=== PATIENT | male | born 1955 | race Caucasian/White ===

== ENCOUNTER → 2024-04-11 10:18 | Outpatient (REF) | payer MEDICARE, OTHER, SELFPAY ==
[2024-04-11 19:51] LABS: Urine Albumin Negative (Neg - Trace); Urine Bilirubin Negative (Negative); Urine Character Clear (Clear); Urine Color Yellow; Urine Glucose Negative (Negative); Urine Ketone Negative (Negative); Urine Leukocyte Negative (Negative); Urine Nitrite Negative (Negative); Urine Occult Blood Negative (Negative); Urine Urobilinogen Negative (Neg - 1+)
== END ==
LOC: CLAB 10:18
PROVIDERS: ATTENDING PHYSICIAN Surgery
DX: N39.0 Urinary tract infection, site not specified (principal)
CPT/HCPCS: 81003; 87086

== ENCOUNTER 2024-04-18 11:01 | Emergency (ER) | payer MEDICARE, OTHER, MEDICAID, SELFPAY ==
[2024-04-18] VITALS (8 sets, daily range): BP systolic 93–139; BP diastolic 48–67; BMI 22.5
--- NOTE | 2024-04-18 12:42 | ED.GENMED ---
History of Present Illness
<Aundrea Oakes PA-C - Last Filed: 04/18/24 20:54>
General
Chief Complaint: Blood Pressure Problem
Source: family
Exam Limitations: developmental stage
Time Seen by Provider: 04/18/24 12:18
Nursing documentation reviewed up to this point in time: agreed with
History of Present Illness
History of Present Illness:
68 y/o M with h/o autism/dev delay
lives with brother and MERCEDES who are POA and are here and primary historians
MERCEDES is retired rn and knows him well
pt has been living with them for 3 yeras
he has been doing well
goes to day program 2 times a week. 2 times last week pt complained while he was there that he was dizy and then peed himself. he had no known reason to pee himself, he didn't pass out or seize but maybe couldn't get to the bathroom in time
he has not had any cp, headache
he has some tremors at baseline and an abnormal gait at baseline but no change to that
MERCEDES started taking his bp lying and standing and would be low 100s lying and drop to 70s standing
he has been eating/drinking as far as they know
but he has been urinatin g more
went to see urology 1 week ago and had PVR which was normal and ua that was neg; is scheduled for cystoscopy next week.
Past History
<Aundrea Oakes PA-C - Last Filed: 04/18/24 20:54>
Past History
ED Past Medical History: GERD and Other (autism, )
Social History
Tobacco: Non-smoker
Alcohol: None
Drug: None
Personal: Single
Living: with family
Employment: Not employed
Review of Systems
<Aundrea Oakes PA-C - Last Filed: 04/18/24 20:54>
Review of Systems
Allergies reviewed?: Yes
All Other Systems: Not applicable
Phy Exam
<Aundrea Oakes PA-C - Last Filed: 04/18/24 20:54>
Physical Exam
Physical Exam:
GENERAL: Alert , in no apparent distress, some mild tremor
EYE: pupils equal and reactive
NECK: Supple
ENT: o/p clr, mmm.
CARDIAC: Regular rate and rhythm .no murmur
LUNGS: Clear breath sounds bilaterally, no acute respiratory distress, no wheezes/rales/rhonchi
ABDOMEN: Soft, without focal tenderness, no r/g, no cvat, normal bowel sounds
NEUROLOGICAL: Alert and oriented, no focal neuro deficits
SKIN: Warm and dry, skin intact.
MUSCULOSKELETAL: No edema, well perfused. neg jason's sign
PSYCH: devlopmental delay
Course
<Aundrea Oakes PA-C - Last Filed: 04/18/24 20:54>
Orders/Labs/Results
Orders:
Orders
04/18/24 11:20
ECG [Electrocardiogram (*1)] Urgent
Reason for Study: Hypertension, Benign
EKG- Treatment ONCE
04/18/24 12:40
0.9% Sodium Chloride 1000 ml [Nss] 1,000 ml IV BOLUS
04/18/24 12:41
CT Head W/o Iv Contrast Urgent
Comment:
Reason For Exam: lightheaded, , incontinent
Cardiac Monitoring- Treatment ONCE
CR Chest - 2 Views Urgent
Comment:
Reason For Exam: orthostatic
04/18/24 12:51
Complete Blood Count/With Diff Urgent
Comprehensive Metabolic Panel Urgent
Cortisol, Random Urgent
Comment: ADD ON
NT-proBNP Urgent
TSH Reflex To Free T4 Urgent
Comment: TSH FREE T4 ADDED ON BY FLOOR 4:40PM 04-18-24
04/18/24 13:02
Urinalysis Reflex To Culture Urgent
Date Specimen was Collected: 04/18/24
Time Specimen was Collected: 13:01
04/18/24 15:51
0.9% Sodium Chloride 500 ml [Nss] 500 ml IV BOLUS
04/18/24 16:38
Add On- LAB Urgent
Tests Added?: tsh free t4
04/18/24 17:03
Add On- LAB Urgent
Tests Added?: cortisol
Abnormal Lab Results
04/18/24
12:51
MPV 12.8 H fL
(7.4-10.4)
Absolute Lymphs (auto) 1.1 L 10^3/uL
(1.2-3.4)
Lymphocytes % 16.5 L %
(20.5-51.1)
BUN 23 H mg/dl
(9-20)
04/18/24 12:51
04/18/24 12:51
Vital Signs
Initial and Last Documented VS:
Initial Vital Signs
Temp Pulse Resp BP Pulse Ox
97.5 F 67 20 118/50 99
04/18/24 11:14 04/18/24 11:14 04/18/24 11:14 04/18/24 11:14 04/18/24 11:14
Last Documented Vital Signs
Temp Pulse Resp BP Pulse Ox
97.5 F 74 20 139/67 95
04/18/24 11:14 04/18/24 17:15 04/18/24 17:15 04/18/24 15:00 04/18/24 16:33
Roxannalt;Ryder Rich, DO - Last Filed: 04/18/24 17:26>
Orders/Labs/Results
Orders:
Orders
04/18/24 11:20
ECG [Electrocardiogram (*1)] Urgent
Reason for Study: Hypertension, Benign
EKG- Treatment ONCE
04/18/24 12:40
0.9% Sodium Chloride 1000 ml [Nss] 1,000 ml IV BOLUS
04/18/24 12:41
CT Head W/o Iv Contrast Urgent
Comment:
Reason For Exam: lightheaded, , incontinent
Cardiac Monitoring- Treatment ONCE
CR Chest - 2 Views Urgent
Comment:
Reason For Exam: orthostatic
04/18/24 12:51
Complete Blood Count/With Diff Urgent
Comprehensive Metabolic Panel Urgent
Cortisol, Random Urgent
Comment: ADD ON
NT-proBNP Urgent
TSH Reflex To Free T4 Urgent
Comment: TSH FREE T4 ADDED ON BY FLOOR 4:40PM 04-18-24
04/18/24 13:02
Urinalysis Reflex To Culture Urgent
Date Specimen was Collected: 04/18/24
Time Specimen was Collected: 13:01
04/18/24 15:51
0.9% Sodium Chloride 500 ml [Nss] 500 ml IV BOLUS
04/18/24 16:38
Add On- LAB Urgent
Tests Added?: tsh free t4
04/18/24 17:03
Add On- LAB Urgent
Tests Added?: cortisol
Abnormal Lab Results
04/18/24
12:51
MPV 12.8 H fL
(7.4-10.4)
Absolute Lymphs (auto) 1.1 L 10^3/uL
(1.2-3.4)
Lymphocytes % 16.5 L %
(20.5-51.1)
BUN 23 H mg/dl
(9-20)
04/18/24 12:51
04/18/24 12:51
Vital Signs
Initial and Last Documented VS:
Initial Vital Signs
Temp Pulse Resp BP Pulse Ox
97.5 F 67 20 118/50 99
04/18/24 11:14 04/18/24 11:14 04/18/24 11:14 04/18/24 11:14 04/18/24 11:14
Last Documented Vital Signs
Temp Pulse Resp BP Pulse Ox
97.5 F 74 20 139/67 95
04/18/24 11:14 04/18/24 17:15 04/18/24 17:15 04/18/24 15:00 04/18/24 16:33
<Aundrea Oakes PA-C - Last Filed: 04/18/24 20:54>
MDM/Problems Addressed
Differential Diagnosis Includes:
orthostasis, dehydration
MDM/Problems Addressed:
68 y/o M with h//o gerd, urinary incontinence, autism/dev delay
here with positional lightheadedness with standing over the last 1.5 weeks new from [facility]
taken off flomax recently just in case, but still dropping ith bps into the 70s on standing per MERCEDES who is RN
pt has symptoms as well, urinates on self and gets lightheaded
no cp, sob
w/u here shows orthostasis despite IVF bolus
D/W hospitalist to admit
his though twas that since the fluids didn't improve the orthostasis, that we probably wouldn't benefit from admission
but would recommend midodrine and outpatient f/u
i spoke with pt's pcp who liked that idea,
start midodrine 2.5 mg tomorrow, in the AM
MERCEDES will monitor pt and f/u with pcp
added on cortisol and hypothyroid testing per medicine recommendation
d/c home
pt did road test well
<Aundrea Oakes PA-C - Last Filed: 04/18/24 20:54>
*Critical Care Note
Total Time (30-74mins, 75-104mins- exclusive of procedures): Not Applicable
ED Attending Note
<Aundrea Oakes PA-C - Last Filed: 04/18/24 20:54>
-
Portions of this chart may have been created with voice recognition software.� Occasional wrong word or��sound alike� substitutions may have occurred due to the inherent limitations of voice recognition software.
<Ryder Rich DO - Last Filed: 04/18/24 17:26>
ED Attending Note
I performed the substantive portion of visit, reviewed & personally made and approve the management plan that is documented in note by myself or KEI.: Yes
Discharge Plan
Departure
Patient Disposition: Home (Routine Discharge)
Date of Disposition: 04/18/24
Time of Disposition: 17:04
Admit to: Telemetry
Patient with high blood pressure during this ER visit?: No
Condition: Fair
Covid-19: Not Applicable
Discharge Problem:
Orthostatic hypotension
Instructions: Orthostatic hypotension
Prescriptions:
New
midodrine 2.5 mg tablet
2.5 mg PO ONCE Qty: 30 0RF
No Action
famotidine [Pepcid] 40 mg Tablet
40 mg PO HS
famotidine [Pepcid] 20 mg Tablet
20 mg PO DAILY
ascorbic acid (vitamin C) [Vitamin C] 500 mg Tablet
500 mg PO DAILY
bismuth subsalicylate [Pepto-Bismol] 262 mg Tablet,Chewable
2 tab PO Q4HPRN PRN (Reason: GERD)
cholecalciferol (vitamin D3) [Vitamin D3] 50 mcg (2,000 unit) Tablet
50 mcg PO DAILY
inulin-sorbitol 2 gram Tablet,Chewable
2 tab PO BID
Referrals:
Juancarlos Ga MD [Family Provider] - Follow up in 2-3 days
Activity Restrictions/Additional Instructions:
DR. GA WOULD LIKE ALYSON TO START MIDODRINE 2.5 MG ONCE A DAY (IN THE MORNING PREFERABLY) AND FOLLOW UP IN THE OFFICE NEXT WEEK
HE SHOULD ALSO HAVE AN OUTPATIENT FOLLOW UP WITH [facility] FOR AN ECHO
SEE IF DR. GA CAN HELP FACILITATE THAT
RETURN FOR WORSENING SYMPTMOS, PASSING OUT, OR ANY CONCERNS.
Interventions
Interventions:
*Risk Screen - Suicide Last Done: 04/18/24 11:14
*General Assessment Last Done: 04/18/24 11:14
*Neglect/Abuse Screening Last Done: 04/18/24 11:14
*Nursing Disposition Last Done: 04/18/24 17:40
ED- Cardiac Assessment Last Done: 04/18/24 12:48
ED- Neurological Assessment Last Done: 04/18/24 12:48
ED- Pulmonary Assessment Last Done: 04/18/24 12:48
Discharge Date and Time
Discharge Date/Time: 04/18/24 17:40
Print Language: GERMAN
[2024-04-18] MEDS: NSS 1000 IV (12:53)
[2024-04-18 13:08] LABS: % Basophils 0.8 % (0-2); % Immature Granulocytes 0.2 % (0-0.5); % Lymphocytes 16.5 % (20.5-51.1); % Monocytes 9.1 % (1.7-9.3); % Neutrophils 73.4 % (42.2-75.2); Absolute Basophils 0.1 10^3/uL (0-0.2); Absolute Lymphocytes 1.1 10^3/uL (1.2-3.4); Absolute Monocytes 0.6 10^3/uL (0.1-0.6); Absolute Neutrophils 4.8 10^3/uL (1.4-6.5); Hematocrit 41.4 % (39.0-52.0); Mean Corp Hgb Conc. 33.8 g/dL (33.0-37.0); Mean Corpuscular Hgb 28.6 pg (27.0-31.0); Mean Corpuscular Volume 84.7 fL (80.0-94.0); Mean Platelet Volume 12.8 fL (7.4-10.4); Nucleated Red Blood Cells % 0 % (-); Platelet Count 153 10^3/uL (130-400); Red Blood Cell Count 4.89 10^6/uL (4.70-6.10); Red Cell Dist. Width 13.9 % (11.5-14.5); White Blood Cell Count 6.6 10^3/uL (4.8-10.8)
[2024-04-18 13:09] LABS: Urine Albumin Negative (Neg - Trace); Urine Bilirubin Negative (Negative); Urine Character Clear (Clear); Urine Color Yellow; Urine Glucose Negative (Negative); Urine Ketone Negative (Negative); Urine Leukocyte Negative (Negative); Urine Nitrite Negative (Negative); Urine Occult Blood Negative (Negative); Urine Specific Gravity 1.015 (<1.030); Urine Urobilinogen Negative (Neg - 1+)
[2024-04-18 13:23] LABS: ALT (SGPT) 37 U/L (0-50); AST (SGOT) 38 U/L (17-59); Albumin 4.4 g/dl (3.5-5.0); Alkaline Phosphatase 47 U/L (38-126); Blood Urea Nitrogen 23 mg/dl (9-20); Calcium 9.2 mg/dl (8.4-10.2); Carbon Dioxide 30 mmol/L (22-30); Chloride 101 mmol/L (98-107); Estimated Creatinine Clearance 97 ml/min; Glucose 77 mg/dl (70-99); Sodium 137 mmol/L (135-145); Total Bilirubin 0.9 mg/dl (0.2-1.3); Total Protein 7.2 g/dl (6.3-8.2); eGFR > 60.00
[2024-04-18 13:24] LABS: NT-proBNP 50.3 pg/ml
[2024-04-18] MEDS: NSS 500 IV (16:01)
[2024-04-18 18:08] LABS: Cortisol, Random 7.1 ug/dl; TSH Reflex To Free T4 0.84 uIU/ml (0.47-4.68)
== END 2024-04-18 17:40 | disposition home or self-care (01) ==
LOC: EMR 11:01
PROVIDERS: Physician Assistant; EMERGENCY PHYSICIAN Emergency Medicine; FAMILY PHYSICIAN Family Medicine
DX: I95.1 Orthostatic hypotension (principal); F84.0 Autistic disorder; R62.50 Unspecified lack of expected normal physiological development in childhood; K21.9 Gastro-esophageal reflux disease without esophagitis
CPT/HCPCS: 99284; 96360; 96361; 70450; 71046; 80053; 81003; 82533; 83880; 84443; 85025; 93005

== ENCOUNTER → 2024-05-23 15:35 | Outpatient (REF) | payer MEDICARE, OTHER, SELFPAY | LOC: RCS 15:35 | PROVIDERS: ATTENDING PHYSICIAN Family Medicine | DX: R53.83 Other fatigue (principal); I95.0 Idiopathic hypotension; I95.89 Other hypotension | CPT/HCPCS: 93306 ==

== ENCOUNTER 2024-05-30 06:27 | Day surgery (SDC) | payer MEDICARE, OTHER, SELFPAY ==
[2024-05-30 13:33] VITALS: BMI 22.5
[2024-05-30 13:34] VITALS: BP 130/63
[2024-05-30] MEDS: NORMOSOL-R/PLASMALYTE-A 1000 IV (13:50)
[2024-05-30 14:45] VITALS: BP 104/58
[2024-05-30 15:00] VITALS: BP 108/47
[2024-05-30 15:12] VITALS: BP 135/61
[2024-05-30 15:15] VITALS: BP 108/76
== END 2024-05-30 15:38 | disposition home or self-care (01) ==
LOC: SDS 06:27
PROVIDERS: ATTENDING PHYSICIAN Surgery
DX: N40.1 Benign prostatic hyperplasia with lower urinary tract symptoms (principal); R35.0 Frequency of micturition; N39.41 Urge incontinence; R35.1 Nocturia; N32.0 Bladder-neck obstruction
CPT/HCPCS: 52000